=== PATIENT | male | born 1955 | race Caucasian/White ===

== ENCOUNTER 2020-10-14 08:20 | Emergency (ER) | payer OTHER ==
[~2020-10-14] VITALS: Ht 172.7 cm; Wt 76.2 kg
--- NOTE | 2020-10-14 09:50 | NUR ---
PT [facility], PER REPORT PATIENT WAS C/O HEADACHE, CHILLS AND WEAKNESS. PT IS AAO AND VERBALLY RESPONSIVE STATING HE WAS EXPOSED TO ROOMATE WHO TESTED POSITIVE FOR COVID. PT DENIES ANY RECENT FALL OR HEAD INJURY. 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 AWAITING MD ANTONIO.
--- NOTE | 2020-10-14 09:58 | NUR ---
DR HALL AT BEDSIDE FOR EVAL.
[2020-10-14] MEDS ORDERED: ACETAMINOPHEN ES 500 MG TABLET ONE (10:10)
[2020-10-14] MEDS: ACETAMINOPHEN ES 500 MG TABLET PO ONE (10:28)
[2020-10-14] MEDS ORDERED: THIA100T70 PO (11:07)
[2020-10-14] MEDS ORDERED: FOLI0.8C PO (11:07)
[2020-10-14] MEDS ORDERED: CHOL200013 PO (11:07)
[2020-10-14] MEDS ORDERED: CYAN-51 PO (11:07)
--- NOTE | 2020-10-14 11:52 | NUR ---
POSITIVE COVID ANTIGEN TEST.
--- NOTE | 2020-10-14 12:08 | NUR ---
CALLED DANIELLE HANCOCK REGARDING PATIENTS PLAN OF CARE. WILL NOT TAKE BAKE PATIENT.
--- NOTE | 2020-10-14 13:17 | NUR ---
SW received a call from ED staff regarding patient living facility complication. [facility] [address] [place], [place] [id number] does not want to receive patient back as he is COVID positive. Plan: CHON to follow-up with [facility] regarding next of kin/ responsible alliance party.
--- NOTE | 2020-10-14 13:23 | NUR ---
CHON spoke with Ember at [facility] [phone]. Patient is in a program with [facility] per Ember. Patient was admitted to [facility] on July 26, 2020. Ashia provided this SW information for Chan with the [facility] for this SW to follow-up. Plan: SW to follow-up with Chan from the [facility] of [facility]. SW to also begin coordination with Case Management team for a safe and proper discharge. Addendum: 10/14/20 at 1328 by ELSA GIVENS Number provided was [phone]
--- NOTE | 2020-10-14 13:28 | NUR ---
CHON spoke with Chan [phone] from the [facility] of [facility] regarding this patient. At this time, Chan informed this SW that at this time there are no known facilities to isolate patient's in their program. Chan to consult with his supervisor picking crew and will return a call to this SW. CHON provided Chan with this SW call back number. Plan: CHON to follow-up with Chan if no follow-up is given. CHON to coordinate with case management team for a safe and proper discharge. CHON remains available for all needs regarding this patient.
--- NOTE | 2020-10-14 13:48 | NUR ---
CALLED JED JJ CALL THE CAR FOR TRANSPORT TO [facility]. NO ETA PROVIDED BUT WILL RECIEVE A CALL FROM THEIR DISPATCH FOR ETA. RESERVATION NUMBER [id number].
--- NOTE | 2020-10-14 14:00 | NUR ---
CHON spoke with Ember at [facility] [phone]. Ember informed this SW patient can return to [facility]. CHON informed ED staff and composite technician Juan to assist in transport. Patient will be returning to [facility] [address] [place] [address] CHON remains available for all needs regarding this patient.
--- NOTE | 2020-10-14 15:16 | NUR ---
TRANSFERED BACK TO FACILITY IN STABLE CONDITION. IV removed. Catheter intact and site benign. Pressure and 4x4 applied to site. No bleeding noted.
[2020-10-14 15:17] VITALS: BP 144/82
== END 2020-10-14 15:17 ==
LOC: ER 08:24
DX: U07.1 COVID-19 (principal); R51.9 Headache, unspecified
CPT/HCPCS: 87426; 99283; C9803; U0003